=== PATIENT | female | born 1965 | race Caucasian/White ===

== ENCOUNTER 2018-10-12 05:45 | Day surgery (SDC) | payer OTHER ==
[~2018-10-12] VITALS: Ht 165.1 cm; Wt 67.8 kg
[2018-10-12 07:04] VITALS: Ht 165.1 cm; Wt 67.8 kg
[2018-10-12] MEDS ORDERED: no meds. (07:09)
[2018-10-12 07:27] VITALS: BP 157/78; PULSE 66; RESP 13
[2018-10-12] MEDS ORDERED: MIDAZOLAM 1 MG/ML 2 ML INJ ONE (08:16)
[2018-10-12] MEDS ORDERED: FENTAnyl 50 MCG/ML VIAL ONE (08:16)
[2018-10-12 08:36] VITALS: BP 137/71; RESP 15
== END 2018-10-12 11:43 | disposition home or self-care (01) ==
LOC: GIL 05:45
PROVIDERS: ATTEND Internal Medicine Gastroenterology
DX: Z12.11 Encounter for screening for malignant neoplasm of colon (principal); K64.1 Second degree hemorrhoids; K57.30 Diverticulosis of large intestine without perforation or abscess without bleeding
CPT/HCPCS: 45378; J2250; J3010; Z7610